=== PATIENT | male | born 1980 | race African-American/Black ===

== ENCOUNTER 2018-01-28 11:36 | Emergency (ER) | payer SELFPAY ==
[~2018-01-28] VITALS: Ht 193 cm; Wt 108.9 kg
--- NOTE | 2018-01-28 11:54 | NUR ---
DR Harrison at the bedside for MSE.
[2018-01-28] MEDS ORDERED: CEPHALEXIN MONOHYDRATE 500 MG CAPSULE PO ONE (12:10)
[2018-01-28] MEDS ORDERED: IBUPROFEN 800 MG TABLET PO ONE (12:15)
[2018-01-28] MEDS ORDERED: IBUPROFEN 800 MG TABLET ONE (12:16)
[2018-01-28] MEDS ORDERED: CEPHALEXIN MONOHYDRATE 500 MG CAPSULE ONE (12:16)
--- NOTE | 2018-01-28 12:34 | NUR ---
Patient discharged to home in stable conditon. Written and verbal after care instructions given. Patient verbalizes understanding of instructions.
[2018-01-28 12:35] VITALS: BP 111/73
== END 2018-01-28 12:35 | disposition home or self-care (01) ==
LOC: ER 11:39
DX: L03.011 Cellulitis of right finger (principal)
CPT/HCPCS: 73120; A4663